=== PATIENT | female | born 1980 | race Caucasian/White ===

== ENCOUNTER 2018-06-11 09:57 | Emergency (ER) | payer MEDICAID ==
[~2018-06-11] VITALS: Ht 165.1 cm; Wt 86.2 kg
[~2018-06-11 09:57] MED LIST: BIRTH CONTROL
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
--- NOTE | 2018-06-11 10:09 | NUR ---
DR RODRIGUEZ AT BEDSIDE FOR EVAL.
[2018-06-11] MEDS ORDERED: NEOMY SULF/BACITRAC ZN/POLY 15 GM TUBE TP STA (10:15)
[2018-06-11] MEDS ORDERED: KETOROLAC TROMETHAMINE INJ 30 MG/ML VIAL ONE (10:26)
[2018-06-11] MEDS ORDERED: ALPRAZOLAM 0.5 MG TABLET ONE (10:27)
[2018-06-11] MEDS ORDERED: KETOROLAC TROMETHAMINE INJ 60 MG/2 ML VIAL IM ONE (10:30)
[2018-06-11] MEDS ORDERED: ALPRAZOLAM 0.5 MG TABLET PO ONE (10:30)
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
[2018-06-11] MEDS ORDERED: IBUPROFEN 600 MG TABLET PO ONE ×2 (10:40→11:00)
[2018-06-11 13:05] VITALS: BP 117/70
--- NOTE | 2018-06-11 13:13 | NUR ---
DISCHARGE INSTRUCTIONS GIVEN TO PT VERBAL AND WRITTEN. ADVISED PT ON FOLLOW UP AND TO RETURN TO ED IF FEELING WORSE NOT BETTER. ADVISED ON PRESCRIPTIONS. ALL QUESTIONS ANSWERED. VERBALIZED UNDERSTANDING. AMBULATED FROM ED STEADY GAIT. PT HAS A RIDE HOME.
== END 2018-06-11 13:05 | disposition home or self-care (01) ==
LOC: ER 09:59
DX: S16.1XXA Strain of muscle, fascia and tendon at neck level, initial encounter (principal); S63.591A Other specified sprain of right wrist, initial encounter; S20.211A Contusion of right front wall of thorax, initial encounter; V49.49XA Driver injured in collision with other motor vehicles in traffic accident, initial encounter; Y93.89 Activity, other specified; Y92.410 Unspecified street and highway as the place of occurrence of the external cause; Y99.8 Other external cause status
CPT/HCPCS: 70450; 71250; 72125; 73100; 99284; A4606; L0172; Z7610; J1885